=== PATIENT | female | born 1955 | race Caucasian/White ===

== ENCOUNTER 2022-12-18 06:56 | Day surgery (SDC) | payer BC, MEDICARE ==
[2012-11-24 16:45] VITALS: BP 148/94
[2022-12-18] MEDS ORDERED: Sodium Chloride 0.9(Preservative Free) 10 ML IJ ONE (06:57)
[2022-12-18] MEDS ORDERED: LIDOCAINE HCL 1% 50 MG/5 ML VL PF IJ ONE (06:57)
[2022-12-18] MEDS ORDERED: Depo-Medrol 40 MG/ML IM ONE (06:57)
[2022-12-18] MEDS ORDERED: DIPRIVAN 200 MG/20 ML IV ONE (08:56)
--- NOTE | 2022-12-18 10:38 | XRAY ---
22 seconds of fluoroscopy was used in surgery for a lumbar JEWEL.
--- NOTE | 2022-12-18 10:38 | XRAY ---
Indication: Lumbar JEWEL. Intraoperative fluoroscopy provided for 22 seconds. 4 digital spot image submitted for interpretation demonstrates posterior needle tip projecting posterior to the lumbosacral junction. Small amount of contrast injected for needle tip placement. Correlate with intraoperative findings/report.
[2022-12-18] MEDS ORDERED: Lactated Ringers 1,000 ML IV ONE (13:58)
== END 2022-12-18 09:40 | disposition home or self-care (01) ==
LOC: SDC-PAIN 06:56
PROVIDERS: ATTEND Psychiatry & Neurology Pain Medicine
DX: M54.16 Radiculopathy, lumbar region (principal); E11.9 Type 2 diabetes mellitus without complications; Z79.899 Other long term (current) drug therapy
CPT/HCPCS: 62323; 72100; 77003; 82947; J1030; J2001; J2704; Q9966

== ENCOUNTER 2023-01-22 08:05 | Day surgery (SDC) | payer BC, MEDICARE ==
[2012-11-24 16:45] VITALS: BP 148/94
[2023-01-22] MEDS ORDERED: Depo-Medrol 40 MG/ML IM ONE (08:06)
[2023-01-22] MEDS ORDERED: BUPIVACAINE 0.5% VIAL IJ ONE (08:06)
[2023-01-22] MEDS ORDERED: DIPRIVAN 200 MG/20 ML IV ONE (09:31)
--- NOTE | 2023-01-22 10:33 | XRAY ---
Indication: Bilateral SI joint injection. Intraoperative fluoroscopy provided for 21 seconds. 5 digital spot image submitted for interpretation demonstrates posterior needle tip projecting over the left and right SI joint. Correlate with intraoperative findings/report.
--- NOTE | 2023-01-22 12:58 | XRAY ---
21 seconds of fluoroscopy was used in surgery for a bilateral sacroiliac joint injection.
[2023-01-22] MEDS ORDERED: Lactated Ringers 1,000 ML IV ONE (13:52)
== END 2023-01-22 10:00 | disposition home or self-care (01) ==
LOC: SDC-PAIN 08:05
PROVIDERS: ATTEND Psychiatry & Neurology Pain Medicine
DX: M46.1 Sacroiliitis, not elsewhere classified (principal); E11.9 Type 2 diabetes mellitus without complications; Z79.899 Other long term (current) drug therapy
CPT/HCPCS: 27096; 72202; 77002; 82947; J1030; J2704; G0260

== ENCOUNTER 2023-05-21 07:33 | Day surgery (SDC) | payer BC, MEDICARE ==
[2012-11-24 16:45] VITALS: BP 148/94
[2023-05-21] MEDS ORDERED: Depo-Medrol 40 MG/ML IM ONE (07:34)
[2023-05-21] MEDS ORDERED: Sodium Chloride 0.9(Preservative Free) 10 ML IJ ONE (07:34)
[2023-05-21] MEDS ORDERED: DIPRIVAN 200 MG/20 ML IV ONE (09:06)
[2023-05-21] MEDS ORDERED: Lactated Ringers 1,000 ML IV ONE (10:50)
--- NOTE | 2023-05-21 11:50 | XRAY ---
Indication: Caudal JEWEL. Intraoperative fluoroscopy provided for 16 seconds. 2 digital spot image submitted for interpretation demonstrates caudal needle tip projecting mid sacrum. Small amount of contrast injected for needle tip placement. Correlate with intraoperative findings/report.
--- NOTE | 2023-05-21 13:02 | XRAY ---
16 seconds of fluoroscopy was used in surgery for a caudal JEWEL.
== END 2023-05-21 09:33 | disposition home or self-care (01) ==
LOC: SDC-PAIN 07:33
PROVIDERS: ATTEND Psychiatry & Neurology Pain Medicine
DX: M54.16 Radiculopathy, lumbar region (principal); E11.9 Type 2 diabetes mellitus without complications; Z79.899 Other long term (current) drug therapy
CPT/HCPCS: 62321; 72220; 77003; 82947; J1030; J2704; Q9966

== ENCOUNTER 2023-09-24 07:52 | Day surgery (SDC) | payer BC, MEDICARE ==
[2012-11-24 16:45] VITALS: BP 148/94
[2023-09-24] MEDS ORDERED: Decadron 4 MG INJ IV ONE (07:53)
[2023-09-24] MEDS ORDERED: Sodium Chloride 0.9(Preservative Free) 10 ML IJ ONE (07:53)
[2023-09-24] MEDS ORDERED: Depo-Medrol 40 MG/ML IM ONE (07:53)
[2023-09-24] MEDS ORDERED: LIDOCAINE HCL 1% 50 MG/5 ML VL PF IJ ONE (07:53)
[2023-09-24] MEDS ORDERED: DIPRIVAN 200 MG/20 ML IV ONE (10:13)
[2023-09-24] MEDS ORDERED: Lactated Ringers 1,000 ML IV ONE (10:37)
--- NOTE | 2023-09-24 11:48 | XRAY ---
Indication: Left piriformis injection. Intraoperative fluoroscopy provided for 10 seconds. Single digital spot image submitted for interpretation demonstrates posterior needle tip projecting over the left right piriformis. Small amount of contrast injected for needle tip placement. Correlate with intraoperative findings/report.
--- NOTE | 2023-09-24 11:50 | XRAY ---
10 seconds of fluoroscopy was used in surgery for a left piriformis injection.
--- NOTE | 2023-09-24 11:50 | XRAY ---
Indication: Caudal JEWEL. Intraoperative fluoroscopy provided for 19 seconds. 3 digital spot image submitted for interpretation demonstrates caudal needle tip projecting mid sacrum. Small amount of contrast injected for needle tip placement. Correlate with intraoperative findings/report.
--- NOTE | 2023-09-24 11:50 | XRAY ---
19 seconds of fluoroscopy was used in surgery for a caudal JEWEL.
== END 2023-09-24 10:45 | disposition home or self-care (01) ==
LOC: SDC-PAIN 07:52
PROVIDERS: ATTEND Psychiatry & Neurology Pain Medicine
DX: M54.16 Radiculopathy, lumbar region (principal); M79.18 Myalgia, other site; Z79.899 Other long term (current) drug therapy
CPT/HCPCS: 20552; 62323; 72170; 72220; 77002; 77003; 82947; J1030; J1100; J2001; J2704; Q9966

== ENCOUNTER 2024-01-14 08:51 | Day surgery (SDC) | payer BC, MEDICARE ==
[2012-11-24 16:45] VITALS: BP 148/94
[2024-01-14] MEDS ORDERED: Sodium Chloride 0.9(Preservative Free) 10 ML IJ ONE (08:52)
[2024-01-14] MEDS ORDERED: XYLOCAINE-MPF 1% 5ML SDV IJ ONE (08:52)
[2024-01-14] MEDS ORDERED: Decadron 4 MG INJ IV ONE (08:52)
[2024-01-14] MEDS ORDERED: Depo-Medrol 40 MG/ML IM ONE (08:52)
[2024-01-14] MEDS ORDERED: DIPRIVAN 200 MG/20 ML IV ONE (11:18)
[2024-01-14] MEDS ORDERED: Lactated Ringers 1,000 ML IV ONE (11:52)
--- NOTE | 2024-01-14 13:08 | XRAY ---
Indication: Left piriformis injection. Intraoperative fluoroscopy provided for 12 seconds. Single digital spot image submitted for interpretation demonstrates posterior needle tip projecting over left piriformis. Small amount of contrast injected for needle tip placement. Correlate with intraoperative findings/report.
--- NOTE | 2024-01-14 13:08 | XRAY ---
Indication: Caudal JEWEL. Intraoperative fluoroscopy provided for 22 seconds. 3 digital spot images submitted for interpretation demonstrates caudal needle tip projecting mid sacrum. Small amount of contrast injected for needle tip placement. Correlate with intraoperative findings/report.
--- NOTE | 2024-01-14 13:50 | XRAY ---
12 seconds of fluoroscopy was used in surgery for a left piriformis injection.
--- NOTE | 2024-01-14 13:50 | XRAY ---
22 seconds of fluoroscopy was used in surgery for a caudal JEWEL.
== END 2024-01-14 12:00 | disposition home or self-care (01) ==
LOC: SDC-PAIN 08:51
PROVIDERS: ATTEND Psychiatry & Neurology Pain Medicine
DX: M54.16 Radiculopathy, lumbar region (principal); M79.18 Myalgia, other site; E11.9 Type 2 diabetes mellitus without complications; Z79.899 Other long term (current) drug therapy
CPT/HCPCS: 20552; 62323; 72170; 72220; 77002; 77003; 82947; J1030; J1100; J2704; Q9966

== ENCOUNTER 2024-02-03 06:34 | Day surgery (SDC) | payer BC, MEDICARE ==
[2024-02-03] MEDS ORDERED: Epinephrine Preservative Free 1 MG/ML IJ ONE (06:35)
[2024-02-03] MEDS ORDERED: TETRACAINE 0.5% STERI-UNIT SOL OP ONE (07:00)
[2024-02-03] MEDS ORDERED: NON-FORMULARY ITEM OP ONE (07:00)
[2024-02-03] MEDS ORDERED: cefUROXime sodium 0.005 GM in Sodium Chloride Flush 30 ML*** 0.5 ML IJ ONE (07:00)
[2024-02-03] MEDS ORDERED: BETADINE 5% OPHTHALMIC 30 ML OP ONE (07:00)
[2024-02-03] MEDS ORDERED: Lactated Ringers 1,000 ML IV ONE (07:33)
[2024-02-03] MEDS: Lactated Ringers 1,000 ML IV SCH (07:36)
[2024-02-03 07:37] VITALS: RESP 16
[2024-02-03] MEDS: TETRACAINE 0.5% STERI-UNIT SOL OP ONE (07:51)
[2024-02-03] MEDS: Ak-Dilate OPHTHALMIC*** 1.065 ML, Cyclogyl 1% OPHTH SOL 1.065 ML, GATIFLOXACIN 0.5% OPH... OP ONE (07:52)
[2024-02-03] MEDS ORDERED: Zofran 4 MG/2 ML VIAL IV PRN (09:15)
[2024-02-03] MEDS ORDERED: DIPRIVAN 200 MG/20 ML IV ONE (09:52)
[2024-02-03 10:24] VITALS: TEMP 97
[2024-02-03] MEDS: ACETAZOLAMIDE 250 MG TABLET PO ONE (10:36)
[2024-02-03 10:37] VITALS: BP 97/71; PULSE 65; O2SAT 96
== END 2024-02-03 10:44 | disposition home or self-care (01) ==
LOC: SDC 06:34
PROVIDERS: ATTEND Ophthalmology
DX: H25.812 Combined forms of age-related cataract, left eye (principal); E11.9 Type 2 diabetes mellitus without complications
CPT/HCPCS: 66982; 82947; C1780; J0171; J2704; A9270-GY

== ENCOUNTER 2024-03-02 05:53 | Day surgery (SDC) | payer BC, MEDICARE ==
[~2024-03-02 05:53] MED LIST: BETADINE 5% OPHTHALMIC 30 ML OP ONE; NON-FORMULARY ITEM OP ONE; cefUROXime sodium 0.005 GM in Sodium Chloride Flush 30 ML*** 0.5 ML IJ ONE
[2024-03-02] MEDS ORDERED: Lactated Ringers 1,000 ML IV ONE (06:09)
[2024-03-02] MEDS: Lactated Ringers 1,000 ML IV SCH (06:25)
[2024-03-02] MEDS ORDERED: Lactated Ringers 1,000 ML IV SCH (06:30)
[2024-03-02] MEDS: TETRACAINE 0.5% STERI-UNIT SOL OP ONE ×2 (06:39→07:17)
[2024-03-02] MEDS ORDERED: Zofran 4 MG/2 ML VIAL IV PRN (07:00)
[2024-03-02] MEDS ORDERED: Epinephrine Preservative Free 1 MG/ML IJ ONE (07:15)
[2024-03-02] MEDS: Ak-Dilate OPHTHALMIC*** 1.065 ML, TROPICAMIDE 1.065 ML, GATIFLOXACIN 0.5% OPHTH DROPS 0... OP ONE (07:22)
[2024-03-02] MEDS ORDERED: DIPRIVAN 200 MG/20 ML IV ONE (08:15)
[2024-03-02 08:34] VITALS: RESP 16
[2024-03-02] MEDS: ACETAZOLAMIDE 250 MG TABLET PO ONE (08:36)
[2024-03-02 08:47] VITALS: BP 119/84; PULSE 80; TEMP 96.7; O2SAT 95
== END 2024-03-02 08:52 | disposition home or self-care (01) ==
LOC: SDC 05:53
PROVIDERS: ATTEND Ophthalmology
DX: H25.811 Combined forms of age-related cataract, right eye (principal); E11.9 Type 2 diabetes mellitus without complications
CPT/HCPCS: 82947; 93005; J0171; J2704; A9270-GY

== ENCOUNTER 2024-06-09 11:07 | Day surgery (SDC) | payer BC, MEDICARE ==
[2012-11-24 16:45] VITALS: BP 148/94
[2024-06-09] MEDS ORDERED: Sodium Chloride 0.9(Preservative Free) 10 ML IJ ONE (11:08)
[2024-06-09] MEDS ORDERED: Depo-Medrol 40 MG/ML IM ONE (11:08)
[2024-06-09] MEDS ORDERED: Decadron 4 MG INJ IV ONE (11:08)
[2024-06-09] MEDS ORDERED: LIDOCAINE HCL 1% 50 MG/5 ML VL PF IJ ONE (11:08)
[2024-06-09] MEDS ORDERED: Lactated Ringers 1,000 ML IV ONE (12:45)
[2024-06-09] MEDS ORDERED: DIPRIVAN 200 MG/20 ML IV ONE (13:04)
--- NOTE | 2024-06-09 15:00 | XRAY ---
Indication: Left piriformis injection. Intraoperative fluoroscopy provided for 12 seconds. Single digital spot image submitted for interpretation demonstrates posterior needle tip projecting over the left piriformis. Small amount of contrast injected for needle tip placement. Correlate with intraoperative findings/report.
--- NOTE | 2024-06-09 15:00 | XRAY ---
Indication: Willy JEWEL. Intraoperative fluoroscopy provided for 14 seconds. 3 digital spot image submitted for interpretation demonstrates caudal needle tip projecting mid sacrum. Small amount of contrast injected for needle tip placement. Correlate with intraoperative findings/report.
--- NOTE | 2024-06-09 16:52 | XRAY ---
14 seconds of fluoroscopy was used in surgery for a caudal JEWEL.
--- NOTE | 2024-06-09 16:52 | XRAY ---
12 seconds of fluoroscopy was used in surgery for a left piriformis injection.
== END 2024-06-09 13:35 | disposition home or self-care (01) ==
LOC: SDC-PAIN 11:07
PROVIDERS: ATTEND Psychiatry & Neurology Pain Medicine
DX: M54.16 Radiculopathy, lumbar region (principal); E11.9 Type 2 diabetes mellitus without complications
CPT/HCPCS: 20553; 62323; 72170; 72220; 77002; 77003; 82947; J1100; J2001; J2704; Q9966